=== PATIENT | female | born 2000 | race Caucasian/White ===

== ENCOUNTER 2021-11-01 13:12 | Emergency (ER) | payer MEDICAID, OTHER ==
[~2021-11-01] VITALS: Ht 165.1 cm; Wt 63.6 kg
[2021-11-01 14:05] LABS: Urine Bacteria MOD /hpf (None Seen); Urine Blood 3+ /uL (Negative); Urine Mucus FEW (None Seen); Urine WBC 421 /hpf (0 - 5)
[2021-11-01] MEDS ORDERED: SULF800T7 PO (16:07)
[2021-11-01] MEDS ORDERED: cefTRIAXone SOD 1,000 MG VL IM ONE (16:15)
[2021-11-01 16:22] VITALS: BP 108/74
== END 2021-11-01 16:40 | disposition home or self-care (01) ==
LOC: ER 13:12
DX: N39.0 Urinary tract infection, site not specified (principal); Z79.899 Other long term (current) drug therapy
CPT/HCPCS: 81001; 81025; 96372; 99283; J0696